=== PATIENT | female | born 1970 | race Two or more races ===

== ENCOUNTER 2016-07-04 23:59 | Emergency (ER) | payer MEDICAID ==
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
== END 2016-07-05 06:43 | disposition home or self-care (01) ==
LOC: CED 23:59
DX: S29.9XXA Unspecified injury of thorax, initial encounter (principal); E11.9 Type 2 diabetes mellitus without complications; E78.00 Pure hypercholesterolemia, unspecified; V49.40XA Driver injured in collision with unspecified motor vehicles in traffic accident, initial encounter; Y93.89 Activity, other specified; Y92.410 Unspecified street and highway as the place of occurrence of the external cause
CPT/HCPCS: 70450; 71010; 71120; 72100; 84703; 99284